=== PATIENT | female | born 1975 | race Asian ===

== ENCOUNTER → 2025-06-16 | Outpatient (CLI) | payer BC, SELFPAY ==
--- NOTE | 2025-06-16 15:42 | XR_ITS ---
Examination: Cervical spine 3 views. TECHNIQUE: AP, lateral, coned AP odontoid cervical spine 3 views. Date and time: June 16, 2025, 1559 hours. INDICATIONS: Neck pain 1 month. FINDINGS: Straightening normal cervical lordosis. No cervical fracture. Intact odontoid. Mild to moderate degenerative disc disease C5-C6 IMPRESSION: [id number] degenerative disc disease C5-C6
== END | disposition home or self-care (01) ==
LOC: CDIM 15:28
PROVIDERS: Referring Provider Internal Medicine; Visit Provider Internal Medicine
DX: M50.322 Other cervical disc degeneration at C5-C6 level (principal)
CPT/HCPCS: 72040